=== PATIENT | female | born 1975 | race Caucasian/White ===

== ENCOUNTER 2024-11-19 16:16 | Emergency (ER) | payer OTHER ==
[~2024-11-19] VITALS: Ht 162.6 cm; Wt 84.0 kg
[2024-11-19 16:21] VITALS: O2SAT 98
[2024-11-19] MEDS: LORAZEPAM 1MG TABLET PO ONE (17:52)
[2024-11-19] MEDS ORDERED: NITR-87 MT (23:37)
[2024-11-19 23:46] VITALS: BP 131/74; PULSE 89; RESP 20; TEMP 36.89184; O2SAT 99
== END 2024-11-19 23:49 | disposition home or self-care (01) ==
LOC: ER 16:16 → EDBD 16:16 → ER 23:49
DX: F12.90 Cannabis use, unspecified, uncomplicated (principal)
CPT/HCPCS: 99283